=== PATIENT | male | born 1960 | race Caucasian/White ===

== ENCOUNTER 2017-01-28 11:56 | Emergency (ER) | payer BC ==
[~2017-01-28] VITALS: Ht 182.9 cm; Wt 127.0 kg
[~2017-01-28 11:56] MED LIST: LEVO500T20 PO; METR500T PO; MULT PO; NAPR220C15 PO
[2017-01-28 12:07] VITALS: BP_SYST 152
[2017-01-28] MEDS ORDERED: HYDROmorphone 1 MG INJ. 1 MG/ML AMPUL IM ONE (13:30)
[2017-01-28] MEDS ORDERED: DEXAMETHASONE SOD PHOSPHATE 10 MG/ML VIAL IM ONE (13:30)
[2017-01-28] MEDS ORDERED: DIPHENHYDRAMINE INJ 50 MG/ML VIAL IM ONE (13:30)
[2017-01-28 13:36] LABS: BILIRUBIN,URINE 2+ (NEGATIVE); BLOOD, URINE NEGATIVE (NEGATIVE); CLARITY/URINE CLEAR (CLEAR); COLOR,URINE YELLOW (YELLOW); GLUCOSE,URINE NEGATIVE (NEGATIVE); KETONES,URINE TRACE (NEGATIVE); LEUKOCYTE ESTERASE ,URINE NEGATIVE (NEGATIVE); NITRITE, URINE NEGATIVE (NEGATIVE); PROTEIN URINE 1+ (NEGATIVE)
[2017-01-28 13:49] LABS: BACTERIA,URINE FEW /HPF (None Seen); MUCUS,URINE 1+ /LPF (None Seen); RBC,URINE 0-3 /HPF (0-3)
[2017-01-28 14:50] VITALS: BP_SYST 133
== END 2017-01-28 14:50 | disposition home or self-care (01) ==
LOC: SED 11:56
DX: M43.17 Spondylolisthesis, lumbosacral region (principal); N39.0 Urinary tract infection, site not specified; I10 Essential (primary) hypertension
CPT/HCPCS: 72131; 81000; 87086; 96372; 99285; J1100; J1170; J1200; J7030